=== PATIENT | female | born 2000 | race African-American/Black ===

== ENCOUNTER 2021-06-29 09:12 | Emergency (ER) | payer OTHER ==
[2021-06-29] MEDS ORDERED: Ketorolac Tromethamine 30 MG/ML VIAL ONE (09:51)
== END 2021-06-29 10:28 | disposition home or self-care (01) ==
LOC: ERS 09:12
DX: G43.909 Migraine, unspecified, not intractable, without status migrainosus (principal)
CPT/HCPCS: 96372; 99283; J1885

== ENCOUNTER 2021-07-22 13:45 | Emergency (ER) | payer OTHER ==
[2021-07-22 14:25] LABS: #Eosinphils 0.2 thou/uL (0.0-0.7); #Lymphocytes 1.3 thou/uL (1.20-3.40); #Monocytes 0.4 thou/uL (0.11-0.59); #Neutrophils 0.9 thou/uL (1.40-6.50); %Basophils 1.7 % (0.0-1.0); %Eosinophils 5.5 % (0.0-10.0); %Lymphocytes 47.6 % (28.0-48.0); %Neutrophils 32.2 % (31.0-61.0); Mean Corpuscular HGB CONC 33.1 g/dL (32.0-36.0); Mean Corpuscular Hemoglobin 28.5 pg (25.0-35.0); Mean Corpuscular Volume 86.1 fL (78.0-98.0); Mean Platelet Volume 6.7 fL (7.4-10.4); Platelet Count 340 thou/uL (130-400); Red Blood Cell (RBC) Count 4.92 mill/uL (4.00-5.20); White Blood Cell (WBC) Count 2.7 thou/uL (4.8-10.8)
[2021-07-22 14:50] LABS: ALT (SGPT) 40 U/L (8-55); AST (SGOT) 31 U/L (5-34); Alkaline Phosphatase 65 U/L (40-100); Anion Gap 10 mmol/L (10-20); BUN (Urea Nitrogen) 12 mg/dL (7.0-18.7); Bilirubin, Total 0.4 mg/dL (0.2-1.2); Calc. Creatinine Clearance 0 mL/min (70-130); Calcium 9.4 mg/dL (7.8-10.44); Carbon Dioxide 28 mmol/L (22-29); Chloride 104 mmol/L (98-107); Globulin 3.4 g/dL (2.4-3.5); Glucose 100 mg/dL (70-105); Potassium 4.8 mmol/L (3.5-5.1); Protein, Total 7.4 g/dL (6.0-8.3); Sodium 137 mmol/L (136-145)
[2021-07-22 16:39] LABS: BHCG - Serum Negative (NEGATIVE); Pregs Control Background? CLEAR/WHITE (CLR/WHITE); Pregs Control Bar Appear? YES (CONTROL BAR)
[2021-07-23 08:43] LABS: SARS-CoV-2 PCR by NAA DETECTED (NotDetected)
== END 2021-07-22 17:55 | disposition home or self-care (01) ==
LOC: ERS 13:45
DX: U07.1 COVID-19 (principal); R07.89 Other chest pain; R04.2 Hemoptysis; D72.819 Decreased white blood cell count, unspecified; J45.909 Unspecified asthma, uncomplicated; G43.909 Migraine, unspecified, not intractable, without status migrainosus
CPT/HCPCS: 36415; 71045; 80053; 84484; 84703; 85025; 85379; 93005; U0003; U0005

== ENCOUNTER 2021-07-31 23:39 | Emergency (ER) | payer OTHER | END 2021-08-01 01:57 | disposition left against medical advice (07) | LOC: ERS 23:39 | DX: Z53.21 Procedure and treatment not carried out due to patient leaving prior to being seen by health care provider (principal) ==

== ENCOUNTER 2021-09-09 18:16 | Emergency (ER) | payer OTHER ==
[2021-09-09 19:01] LABS: #Basophils 0.1 thou/uL (0.0-0.2); #Eosinphils 0.2 thou/uL (0.0-0.7); #Lymphocytes 2.1 thou/uL (1.20-3.40); #Monocytes 0.4 thou/uL (0.11-0.59); %Basophils 0.9 % (0.0-1.0); %Eosinophils 2.6 % (0.0-10.0); %Lymphocytes 31.4 % (28.0-48.0); %Monocytes 6.3 % (0.0-4.0); %Neutrophils 58.8 % (31.0-61.0); Hemoglobin 13.5 g/dL (12.0-16.0); Mean Corpuscular HGB CONC 33.3 g/dL (32.0-36.0); Mean Corpuscular Hemoglobin 28.7 pg (25.0-35.0); Mean Platelet Volume 6.7 fL (7.4-10.4); Platelet Count 381 thou/uL (130-400); RBC Distribution Width 11.8 % (11.5-14.5); Red Blood Cell (RBC) Count 4.71 mill/uL (4.00-5.20); White Blood Cell (WBC) Count 6.7 thou/uL (4.8-10.8)
[2021-09-09 19:02] LABS: Bilirubin Negative (Negative); Blood, Urine Negative (Negative); Clarity Clear (Clear); Glucose, Urine (Dipstick) Normal (Negative); Ketone, Urine Negative (Negative); Leukocyte Negative Leu/uL (Negative); Nitrite Negative (Negative); Protein, Urine (Dipstick) Negative (Neg-Trace); Specific Gravity, Urine 1.025 (1.002-1.036); pH, Urine 6.5 (5.0-9.0)
[2021-09-09 19:12] LABS: BHCG - Serum Negative (NEGATIVE); Pregs Control Background? CLEAR/WHITE (CLR/WHITE); Pregs Control Bar Appear? YES (CONTROL BAR)
[2021-09-09 19:46] LABS: ALT (SGPT) 16 U/L (8-55); AST (SGOT) 18 U/L (5-34); Albumin 4.4 g/dL (3.5-5.0); Alkaline Phosphatase 85 U/L (40-100); Anion Gap 8 mmol/L (10-20); BUN (Urea Nitrogen) 14 mg/dL (7.0-18.7); Bilirubin, Total 0.4 mg/dL (0.2-1.2); Calc. Creatinine Clearance 0 mL/min (70-130); Calcium 9.7 mg/dL (7.8-10.44); Carbon Dioxide 27 mmol/L (22-29); Chloride 104 mmol/L (98-107); Globulin 3.3 g/dL (2.4-3.5); Glucose 90 mg/dL (70-105); Lipase 17 U/L (8-78); Potassium 3.9 mmol/L (3.5-5.1); Protein, Total 7.7 g/dL (6.0-8.3); Sodium 135 mmol/L (136-145)
== END 2021-09-09 20:47 | disposition home or self-care (01) ==
LOC: ERS 18:16
DX: R10.13 Epigastric pain (principal); J45.909 Unspecified asthma, uncomplicated
CPT/HCPCS: 36415; 76856; 80053; 81003; 83690; 84703; 85025

== ENCOUNTER 2022-04-06 11:37 | Emergency (ER) | payer SELFPAY ==
[2022-04-06 12:31] LABS: Bilirubin Negative (Negative); Blood, Urine Negative (Negative); Clarity Clear (Clear); Glucose, Urine (Dipstick) Normal (Negative); Ketone, Urine Negative (Negative); Leukocyte Negative Leu/uL (Negative); Nitrite Negative (Negative); Protein, Urine (Dipstick) Negative (Neg-Trace); Specific Gravity, Urine 1.019 (1.002-1.036); Urobilinogen Normal mg/dL (Less than 2); pH, Urine 7.5 (5.0-9.0)
[2022-04-06 12:39] LABS: #Eosinphils 0.1 thou/uL (0.0-0.7); #Lymphocytes 1.6 thou/uL (1.20-3.40); #Monocytes 0.4 thou/uL (0.11-0.59); #Neutrophils 3.1 thou/uL (1.40-6.50); %Basophils 0.7 % (0.0-1.0); %Eosinophils 1.9 % (0.0-10.0); %Neutrophils 59.4 % (31.0-61.0); Hemoglobin 12.9 g/dL (12.0-16.0); Mean Corpuscular HGB CONC 32.1 g/dL (32.0-36.0); Mean Corpuscular Hemoglobin 27.2 pg (25.0-35.0); Mean Corpuscular Volume 84.8 fL (78.0-98.0); Mean Platelet Volume 7.4 fL (7.4-10.4); Platelet Count 370 thou/uL (130-400); RBC Distribution Width 12.4 % (11.5-14.5); Red Blood Cell (RBC) Count 4.74 mill/uL (4.00-5.20); White Blood Cell (WBC) Count 5.2 thou/uL (4.8-10.8)
[2022-04-06 13:03] LABS: ALT (SGPT) 16 U/L (8-55); AST (SGOT) 14 U/L (5-34); Albumin 4.2 g/dL (3.5-5.0); Alkaline Phosphatase 77 U/L (40-100); Anion Gap 11 mmol/L (10-20); BUN (Urea Nitrogen) 11 mg/dL (7.0-18.7); Bilirubin, Total 0.6 mg/dL (0.2-1.2); Calc. Creatinine Clearance 0 mL/min (70-130); Calcium 9.7 mg/dL (7.8-10.44); Carbon Dioxide 25 mmol/L (22-29); Chloride 105 mmol/L (98-107); Estimated GFR 89; Glucose 98 mg/dL (70-105); Lipase 17 U/L (8-78); Potassium 4.2 mmol/L (3.5-5.1); Protein, Total 7.2 g/dL (6.0-8.3); Sodium 137 mmol/L (136-145)
[2022-04-06 13:10] LABS: BHCG - Serum Negative (NEGATIVE); Pregs Control Background? CLEAR/WHITE (CLR/WHITE); Pregs Control Bar Appear? YES (CONTROL BAR)
[2022-04-07 13:48] LABS: Chlamydia by PCR Not Detected (NotDetected); GC by PCR Not Detected (NotDetected)
== END 2022-04-06 15:03 | disposition home or self-care (01) ==
LOC: ERS 11:37
DX: N93.9 Abnormal uterine and vaginal bleeding, unspecified (principal); N92.5 Other specified irregular menstruation
CPT/HCPCS: 36415; 80053; 81003; 83690; 84703; 85025; 87480; 87491; 87510; 87591; 87660; 99284

== ENCOUNTER 2022-10-14 17:26 | Emergency (ER) | payer OTHER, SELFPAY ==
[2022-10-14 17:59] LABS: Bilirubin Negative (Negative); Blood, Urine Negative (Negative); Clarity Clear (Clear); Glucose, Urine (Dipstick) Normal (Negative); Ketone, Urine Negative (Negative); Leukocyte Negative Leu/uL (Negative); Nitrite Negative (Negative); Protein, Urine (Dipstick) Negative (Neg-Trace); Urobilinogen Normal mg/dL (Less than 2); pH, Urine 6.5 (5.0-9.0)
[2022-10-14 18:02] LABS: Pregnancy Test - Urine (BHCG) Negative (Negative); Pregu Control Background? CLEAR/WHITE (CLR/WHITE); Pregu Control Bar Appear? YES (CONTROL BAR)
== END 2022-10-14 19:58 | disposition home or self-care (01) ==
LOC: ERS 17:26
DX: R10.9 Unspecified abdominal pain (principal)
CPT/HCPCS: 81003; 81025; 87086; 99284

== ENCOUNTER 2022-11-07 09:57 | Emergency (ER) | payer OTHER ==
[2022-11-07 11:41] LABS: Bilirubin Negative (Negative); Blood, Urine Negative (Negative); Clarity Clear (Clear); Glucose, Urine (Dipstick) Normal (Negative); Ketone, Urine Negative (Negative); Leukocyte Negative Leu/uL (Negative); Nitrite Negative (Negative); Protein, Urine (Dipstick) Negative (Neg-Trace); Urobilinogen Normal mg/dL (Less than 2); pH, Urine 6.5 (5.0-9.0)
[2022-11-07 11:45] LABS: Pregnancy Test - Urine (BHCG) Negative (Negative); Pregu Control Background? CLEAR/WHITE (CLR/WHITE); Pregu Control Bar Appear? YES (CONTROL BAR)
== END 2022-11-07 12:14 | disposition home or self-care (01) ==
LOC: ERS 09:57
DX: N91.2 Amenorrhea, unspecified (principal); J45.909 Unspecified asthma, uncomplicated
CPT/HCPCS: 81003; 81025; 99283

== ENCOUNTER 2024-01-04 17:53 | Emergency (ER) | payer SELFPAY ==
[2024-01-04] MEDS ORDERED: Dexamethasone 10 MG/ML VIAL ONE (18:12)
== END 2024-01-04 18:17 | disposition home or self-care (01) ==
LOC: ERS 17:53
DX: H66.43 Suppurative otitis media, unspecified, bilateral (principal); H73.93 Unspecified disorder of tympanic membrane, bilateral
CPT/HCPCS: 99282; J1100